=== PATIENT | female | born 1975 | race Caucasian/White ===

== ENCOUNTER 2020-12-27 04:08 | Emergency (ER) | payer BC ==
[2020-12-27] MEDS ORDERED: Sodium Chloride 0.9% 10 ML Syringe FLUSH PRN (04:25)
[2020-12-27] MEDS ORDERED: HYDROmorphone 1 MG/ML Syringe IVPUSH ONE (04:26)
[2020-12-27] MEDS ORDERED: Ondansetron 4 MG/2 ML SDV IVPUSH ONE (04:26)
[2020-12-27] MEDS ORDERED: Ketorolac 15 MG/ML SDV IVPUSH ONE (04:27)
[2020-12-27] MEDS ORDERED: Lactated Ringers 1,000 ML IV SCH (04:30)
--- NOTE | 2020-12-27 04:38 | EDM.PDOC ---
ED HPI GENERAL MEDICAL PROBLEM - General Chief Complaint: Abdominal Pain Stated Complaint: ABDOMINAL PAIN Time Seen by Provider: 12/27/20 04:20 Source of Information: Reports: Patient History Limitations: Reports: No Limitations - History of Present Illness INITIAL COMMENTS - FREE TEXT/NARRATIVE: Pt. presents to ER with complaints of intermittent epigastric pain that started yesterday. Pt. states that she has been experiencing nausea and has vomited several times as well. She states that she has never had pain like this in the past. She states that she has not noticed any dark colored urine or claudia colored stools. Pt. states that the discomfort is worse with palpation of the area. She states that the baseline pain is approx. a 6, with paroxysmal episodes up to 9. Pt. s tates that she still has her gallbladder. Pt. states that the discomfort started about an hour after eating yesterday. She states that she did not eat a meal last night. Pt. denies any substernal chest pain. No jaw, arm, or neck pain. Denies any shortness of breath, lightheadedness, or palpitations. Onset Date: 12/26/20 Location: Reports: Abdomen Quality: Reports: Ache, Sharp Worsens with: Reports: Eating Associated Symptoms: Reports: Nausea/Vomiting Epigastric Pain Score (Numeric/FACES): 7 - Related Data Allergies Allergy/AdvReac Type Severity Reaction Status Date / Time Sulfa (Sulfonamide Allergy Rash Verified 12/27/20 04:09 Antibiotics) Home Meds: Home Meds . [No Known Home Meds] 12/27/20 [History] Social & Family History - Tobacco Use Tobacco Use Status *Q: Never Tobacco User - Caffeine Use Caffeine Use: Reports: None - Recreational Drug Use Recreational Drug Use: No ED ROS GENERAL - Review of Systems Review Of Systems: See Below Constitutional: Reports: Decreased Appetite. Denies: Fever, Chills, Malaise, Weakness, Fatigue, Weight Gain HEENT: Reports: No Symptoms Respiratory: Reports: No Symptoms Cardiovascular: Reports: No Symptoms Endocrine: Reports: No Symptoms GI/Abdominal: Reports: Abdominal Pain, Anorexia, Vomiting. Denies: Black Stool, Bloody Stool, Constipation, Diarrhea, Distension, Hematemesis, Hematochezia, Melena : Reports: No Symptoms Musculoskeletal: Reports: No Symptoms Skin: Reports: No Symptoms Neurological: Reports: No Symptoms Psychiatric: Reports: No Symptoms Hematologic/Lymphatic: Reports: No Symptoms Immunologic: Reports: No Symptoms ED EXAM, GENERAL - Physical Exam Exam: See Below Exam Limited By: No Limitations General Appearance: Alert, WD/WN, No Apparent Distress GI/Abdominal: Soft, No Organomegaly, No Distention, No Mass, Tender. No: Distended, Guarding, Rigid, Rebound (Female) Exam: Deferred Rectal (Female) Exam: Deferred Back Exam: Normal Inspection, Full Range of Motion Extremities: Normal Inspection, Normal Range of Motion, No Pedal Edema, Normal Capillary Refill Neurological: Alert, Oriented, CN II-XII Intact, Normal Cognition, Normal Gait, Normal Reflexes, No Motor/Sensory Deficits Psychiatric: Normal Affect, Normal Mood Course - Vital Signs Last Recorded V/S: Last Vital Signs Temp 36.4 C 12/27/20 04:14 Pulse 80 12/27/20 04:14 Resp 14 12/27/20 04:14 BP 140/81 12/27/20 04:14 Pulse Ox 100 12/27/20 04:14 - Orders/Labs/Meds Orders: Active Orders 24 hr Category Date Time Status Peripheral IV Care [RC] . DIRECTED Care 12/27/20 04:26 Ordered Gallbladder [Abdomen Ltd] [US] Stat Exams 12/27/20 04:47 Ordered Lactated Ringers [Ringers, Lactated] 1,000 ml Med 12/27/20 04:30 Ordered IV ASDIRECTED Sodium Chloride 0.9% [Saline Flush] Med 12/27/20 04:25 Ordered 10 ml FLUSH ASDIRECTED PRN Peripheral IV Insertion Adult [OM.PC] Routine Oth 12/27/20 04:26 Ordered Medication Orders Lactated Ringer's (Ringers, Lactated) 1,000 mls @ 500 mls/hr IV ASDIRECTED ANGELO Last Admin: 12/27/20 04:47 Dose: 500 mls/hr Documented by: [id number] Sodium Chloride (Sodium Chloride 0.9% 10 Ml Syringe) 10 ml FLUSH ASDIRECTED PRN PRN Reason: Keep Vein Open Labs: Laboratory Tests 12/27/20 12/27/20 12/27/20 Range/Units 04:38 04:38 04:38 WBC 14.8 H (4.0-10.2) K/uL RBC 5.29 H (3.77-5.09) M/uL Hgb 15.1 (11.7-15.5) g/dL Hct 44.0 (34.0-46.0) % MCV 83.2 L (84.0-98.0) fL MCH 28.5 (28.2-33.3) pg MCHC 34.3 (31.7-36.0) g/dL RDW 13.7 (11.2-14.1) % Plt Count 304 (150-350) K/uL Neut % (Auto) 77.7 (45.0-80.0) % Lymph % (Auto) 13.9 (10.0-50.0) % Cochran % (Auto) 6.8 (2.0-14.0) % Eos % (Auto) 1.3 (0.0-5.0) % Baso % (Auto) 0.3 (0.0-2.0) % Neut # (Auto) 11.52 H (1.40-7.00) K/uL Lymph # (Auto) 2.06 (0.50-3.50) K/uL Cochran # (Auto) 1.01 H (0.00-1.00) K/uL Eos # (Auto) 0.19 (0.00-0.50) K/uL Baso # (Auto) 0.04 (0.00-0.20) K/uL PT 9.7 (9.5-12.0) SEC INR 1.0 Sodium 138 (136-145) mmol/L Potassium 3.8 (3.5-5.1) mmol/L Chloride 103 (98-107) mmol/L Carbon Dioxide 25.6 (21.0-32.0) mmol/L BUN 11 (7-18) mg/dL Creatinine 0.74 (0.51-1.17) mg/dL Est Cr Clr Drug Dosing 90.82 mL/min Estimated GFR (MDRD) > 60 mL/min Glucose 129 H (70-99) mg/dL Calcium 9.0 (8.5-10.1) mg/dL Total Bilirubin 0.5 (0.2-1.0) mg/dL AST 21 (15-37) U/L ALT 34 (12-78) U/L Alkaline Phosphatase 87 (46-116) IU/L C-Reactive Protein 0.3 (<=0.9) mg/dL Total Protein 7.5 (6.4-8.2) g/dL Albumin 4.0 (3.4-5.0) g/dL Amylase 32 (25-115) U/L Lipase 63 L (73-393) U/L Meds: Medications Generic Name Dose Route Start Last Admin Trade Name Mina PRN Reason Stop Dose Admin Lactated Ringer's 1,000 mls @ 500 mls/hr 12/27/20 04:30 12/27/20 04:47 Ringers, Lactated IV 500 mls/hr ASDIRECTED ANGELO Administration Sodium Chloride 10 ml 12/27/20 04:25 Sodium Chloride 0.9% 10 Ml Syringe FLUSH ASDIRECTED PRN Keep Vein Open Discontinued Medications Generic Name Dose Route Start Last Admin Trade Name Mina PRN Reason Stop Dose Admin Hydromorphone HCl 1 mg 12/27/20 04:26 12/27/20 04:45 Hydromorphone 1 Mg/Ml Syringe IVPUSH 12/27/20 04:27 1 mg ONETIME ONE Administration Ketorolac Tromethamine 15 mg 12/27/20 04:27 12/27/20 04:42 Ketorolac 15 Mg/Ml Sdv IVPUSH 12/27/20 04:28 15 mg ONETIME ONE Administration Ondansetron HCl 4 mg 12/27/20 04:26 12/27/20 04:42 Ondansetron 4 Mg/2 Ml Sdv IVPUSH 12/27/20 04:27 4 mg ONETIME ONE Administration - Re-Assessments/Exams Free Text/Narrative Re-Assessment/Exam: 12/27/20 05:17 Pt. was given dilaudid 1mg IV, toradol 15mg IV, zofran 4mg IV and a liter of lactated ringers. Pt. reports significant improvement in discomfort. Departure - Departure Time of Disposition: 06:00 Disposition: Home, Self-Care 01 Clinical Impression: Epigastric pain - Discharge Information Instructions: Ondansetron oral dissolving tablet, Cholelithiasis, [id number], Gallbladder Eating Plan Forms: ED Department Discharge Additional Instructions: You will be contacted regarding a time for your gallbladder ultrasound. Zofran 8mg 1/2-1 tab every 6 hours as needed for nausea/vomiting Ibuprofen 200mg 3 tabs every 6 hours as needed for pain [place] 10/325mg 1 every 6 hours as needed for pain severe pain Minimize consumption of fatty foods Return to ER if you have worsening discomfort not amenable to the oral pain medication, or if you develop fever or chills. Call if you have any questions. Sepsis Event Note (ED) - Evaluation Sepsis Screening Result: No Definite Risk - Focused Exam Vital Signs: Vital Signs Temp Pulse Resp BP Pulse Ox 12/27/20 04:14 36.4 C 80 14 140/81 100 - My Orders Last 24 Hours: My Active Orders 12/27/20 04:25 Sodium Chloride 0.9% [Saline Flush] 10 ml FLUSH ASDIRECTED PRN 12/27/20 04:26 Peripheral IV Care [RC] . DIRECTED Peripheral IV Insertion Adult [OM.PC] Routine 12/27/20 04:30 Lactated Ringers [Ringers, Lactated] 1,000 ml IV ASDIRECTED 12/27/20 04:47 Gallbladder [Abdomen Ltd] [US] Stat - Assessment/Plan Last 24 Hours: My Active Orders 12/27/20 04:25 Sodium Chloride 0.9% [Saline Flush] 10 ml FLUSH ASDIRECTED PRN 12/27/20 04:26 Peripheral IV Care [RC] . DIRECTED Peripheral IV Insertion Adult [OM.PC] Routine 12/27/20 04:30 Lactated Ringers [Ringers, Lactated] 1,000 ml IV ASDIRECTED 12/27/20 04:47 Gallbladder [Abdomen Ltd] [US] Stat Plan: You will be contacted regarding a time for your gallbladder ultrasound. Zofran 8mg 1/2-1 tab every 6 hours as needed for nausea/vomiting Ibuprofen 200mg 3 tabs every 6 hours as needed for pain [place] 10/325mg 1 every 6 hours as needed for pain severe pain Minimize consumption of fatty foods Return to ER if you have worsening discomfort not amenable to the oral pain medication, or if you develop fever or chills. Call if you have any questions.
[2020-12-27 04:59] LABS: CHLORIDE,CL 103 mmol/L (98-107); SODIUM,NA 138 mmol/L (136-145)
[2020-12-27] MEDS ORDERED: Acetaminophen/HYDROcodone 325-10 MG Tab PO PRN (05:22)
[2020-12-27] MEDS ORDERED: Ondansetron 4 MG Tab.DIS PO PRN (05:23)
[2020-12-27] MEDS ORDERED: Acetaminophen/HYDROcodone 325-10 MG Tab PO ONE (05:32)
[2020-12-27] MEDS ORDERED: Ondansetron 4 MG Tab.DIS PO ONE (05:35)
== END 2020-12-27 05:50 | disposition home or self-care (01) ==
LOC: LL.ED 04:08
DX: R10.13 Epigastric pain (principal); Z88.2 Allergy status to sulfonamides
CPT/HCPCS: 36415; 80053; 82150; 83690; 85025; 85610; 86140; 96374; 96375; 99284; 99284-25; A9270-GY; J1170; J1885; J2405; J7120